=== PATIENT | female | born 1970 | race Caucasian/White ===

== ENCOUNTER 2022-11-21 13:22 | Emergency (ER) | payer BC, SELFPAY ==
[2022-11-21 13:23] VITALS: BP 139/95; PULSE 72; RESP 14; TEMP 36.4; O2SAT 100; BMI 25.7
--- NOTE | 2022-11-21 13:42 | EDS_ITS ---
HPI History of Present Illness Chief Complaint: Upper Extremity Injury Informant: patient Narrative Narrative: Patient presents after a fall. She was trying to get across her basement floor that she just painted. She was standing in a large bucket and trying to jump across the floor so as not to leave footprints. She stumbled and fell forwards landing on her hands and knees. She complains of pain to her left wrist as well as her left knee. She does report a prior fracture to her left wrist but no surgical intervention was required. She is right-hand dominant. She denies any other injury. [facility] Medical History (Updated 11/21/22 @ 15:[address] Julia Meeks MD) Wrist fracture, bilateral Home Medications alprazolam 0.5 mg tablet 0.5 mg PO TID PRN PRN Anxiety 01/31/16 [History Last Taken Unknown] diphenhydramine HCl 25 mg capsule (Banophen) 25 mg PO Q6H PRN Allergies ##30 01/31/16 [Rx Last Taken Unknown] escitalopram oxalate 10 mg tablet 10 mg PO DAILY 01/31/16 [History Last Taken Unknown] famotidine 20 mg tablet 20 mg PO BID ##10 01/31/16 [Rx Last Taken Unknown] prednisone 20 mg tablet 60 mg (3 x 20 mg) PO DAILY ##15 01/31/16 [Rx Last Taken Unknown] Allergy/AdvReac Type Severity Reaction Status Date / Time No Known Allergies Allergy Verified 11/21/22 13:24 Social History Smoking Status: Current every day smoker tobacco type: cigarettes ROS ROS ED Constitutional Constitutional ED: Denies chills or fever(s) Eyes Eyes: Denies change in vision ENT ENT ED: Denies rhinorrhea or sore throat Cardiovascular Cardiovascular: Denies chest pain Respiratory/Chest Respiratory/Chest: Denies cough or dyspnea Gastrointestinal Gastrointestinal: Denies abdominal pain, nausea or vomiting Musculoskeletal Musculoskeletal: Reports extremity pain; Denies back pain Integumentary Denies Abrasions or rash Neurologic Neurologic: Reports paresthesias; Denies headache(s) or weakness Allergic/Immunologic Allergic/Immunologic ED: Denies lip swelling or urticaria EXAM Physical Exam Const Vital Signs: 11/21/22 13:23 Temperature 97.6 F L Temperature Source Temporal Pulse Rate 72 Respiratory Rate 14 Blood Pressure 139/95 H Blood Pressure Mean 109 Pulse Ox 100 Oxygen Delivery Method Room Air Positive well nourished and well developed General Appearance ED: well developed HEENT Reports normocephalic and head/scalp atraumatic Eyes PERRL and EOMs intact bilaterally Neck supple Chest Wall inspection of chest normal and palpation of chest normal Resp normal respiratory effort and clear to auscultation bilaterally Cardio regular rate and regular rhythm GI Palpation: soft Extremity Extremity Narrative: Tenderness to palpation on the distal radius on the left wrist. No obvious deformity. Good cap refill distally and can wiggle fingers. No tenderness at the elbow or shoulder. Left lower extremity examination feels mild tenderness over the anterior knee. Full range of motion. Ligaments are tight on testing. Strong distal pulses. Neuro oriented x3 and no sensory deficits noted Sensorium / Orientation: alert Psych mental status grossly normal Skin no rashes or lesions noted MDM MDM MDM Narrative Medical decision making narrative: Ice pack applied to the left wrist. Patient given naproxen for pain and left wrist x-rays obtained to evaluate for fracture. Radiography Diagnostic Testing: Radiology Impression Wrist X-Ray 11/21/22 13:50 IMPRESSION: Suggestion of previous fracture to the ulnar styloid with either a accessory ossicle or old ununited fracture fragment. No acute fracture noted but there is nonspecific soft tissue swelling about the distal ulna, and a subtle occult fracture cannot be excluded. Slightly positive ulnar variance No demonstrated fracture in the distal radius and carpals or metacarpals Electronically Signed: Shahram Jackson MD at 14:06 EDT Reading Location ID and State: [facility] / [place] , Service support , Treatment and Re-Evaluation Narrative: Left wrist x-rays per my interpretation reveal no evidence of acute fracture. Radiology interpretation is reviewed and agrees. Patient placed in a thumb spica Velcro splint. She will use Aleve at home for pain. Return instructions provided. Discharge Plan Triage Chief Complaint: Upper Extremity Injury ED Provider: Julia Meeks Dx/Rx/DC Orders Clinical Impression: Fall, Left wrist sprain Instructions: ED Wrist Sprain Prescriptions: No Action alprazolam 0.5 MG tablet 0.5 mg PO TID PRN PRN (Reason: Anxiety) Patient Comments: take 1 tablet by mouth three times a day escitalopram oxalate 10 MG tablet 10 mg PO DAILY prednisone 20 MG tablet 60 mg PO DAILY Qty: 15 0RF famotidine 20 MG tablet 20 mg PO BID Qty: 10 0RF diphenhydramine HCl [Banophen] 25 MG capsule 25 mg PO Q6H PRN (Reason: Allergies) Qty: 30 0RF Primary Care Provider: Care Physician,No Primary Referrals: Josh Avelar DO [Med Staff - [employer]] - As Needed Care Physician,No Primary [Primary Care Provider] - Disposition Disposition: Home, Self Care
--- NOTE | 2022-11-21 13:50 | RAD_ITS ---
STUDY: X-RAY - LEFT WRIST REASON FOR EXAM: Female, 52 years old. Pain and swelling TECHNIQUE: 3 view(s) of the wrist were obtained. COMPARISON: None. FINDINGS: Plain film evidence to suspect previous trauma to the ulnar styloid with either an accessory ossicle or old ununited fracture fragment. There is no demonstrated acute fracture but there is subtle soft tissue swelling about the distal ulna and a subtle acute fracture cannot be excluded. Please correlate with physical exam and history Normal visualized distal radius. Normal radiocarpal articulation. There is a slightly positive ulnar variance. Normal carpal bones. Normal carpal articulations. Normal carpometacarpal articulation of the thumb. Normal second through fifth carpometacarpal articulations. Normal visualized metacarpal bones. RAD/Wrist min 3 Views IMPRESSION: Suggestion of previous fracture to the ulnar styloid with either a accessory ossicle or old ununited fracture fragment. No acute fracture noted but there is nonspecific soft tissue swelling about the distal ulna, and a subtle occult fracture cannot be excluded. Slightly positive ulnar variance No demonstrated fracture in the distal radius and carpals or metacarpals Electronically Signed: Shahram Jackson MD at 14:06 EDT ,
[2022-11-21] MEDS: Naproxen 500 MG Tablet PO (13:51)
== END 2022-11-21 15:10 | disposition home or self-care (01) ==
PROVIDERS: Emergency Provider Emergency Medicine; Visit Provider Emergency Medicine
DX: S63.92XA Sprain of unspecified part of left wrist and hand, initial encounter (principal); F17.210 Nicotine dependence, cigarettes, uncomplicated; W01.0XXA Fall on same level from slipping, tripping and stumbling without subsequent striking against object, initial encounter
CPT/HCPCS: 73110; 99284